=== PATIENT | female | born 1940 | race Caucasian/White ===

== ENCOUNTER 2019-08-13 11:01 | Outpatient (CLI) | payer OTHER ==
[~2019-08-13 11:01] MED LIST: CARVEDILOL25 MG; COZAAR100 MG; HUMALOG100 U/M1 SQ; HUMULIN N100 U/ML SQ; L-METHYL-MC TA1 EACH; LASIX40 MG PO; LIPITOR40 MG; SYNTHROID50 MCG; TRAMADOL HCL-AP1 TAB PO
== END 2019-08-13 11:45 | disposition home or self-care (01) ==
LOC: WOUND CARE 11:01 → WOUND MED 11:01 → WOUND CARE 11:45
DX: L30.8 Other specified dermatitis (principal); R60.0 Localized edema; L30.3 Infective dermatitis
CPT/HCPCS: G0463; A4554; A4930; A6216

== ENCOUNTER 2019-09-19 09:42 | Outpatient (CLI) | payer OTHER | END 2019-09-19 10:22 | disposition home or self-care (01) | LOC: WOUND MED 09:42 | DX: E11.622 Type 2 diabetes mellitus with other skin ulcer (principal); L97.821 Non-pressure chronic ulcer of other part of left lower leg limited to breakdown of skin; L03.116 Cellulitis of left lower limb | CPT/HCPCS: A4554; A4930; A6196; A6216; A6266; G0463 ==

== ENCOUNTER 2019-09-24 10:16 | Outpatient (CLI) | payer OTHER | END 2019-09-24 12:00 | disposition home or self-care (01) | LOC: WOUND MED 10:16 | DX: E11.622 Type 2 diabetes mellitus with other skin ulcer (principal); L97.821 Non-pressure chronic ulcer of other part of left lower leg limited to breakdown of skin | CPT/HCPCS: G0463; A4554; A4930; A6196; A6216; A6219; A6266 ==

== ENCOUNTER 2019-10-01 10:58 | Outpatient (CLI) | payer OTHER | END 2019-10-01 12:00 | disposition home or self-care (01) | LOC: WOUND MED 10:58 | DX: E11.622 Type 2 diabetes mellitus with other skin ulcer (principal); L97.821 Non-pressure chronic ulcer of other part of left lower leg limited to breakdown of skin | CPT/HCPCS: G0463; A4554; A4930; A6216 ==

== ENCOUNTER → 2020-03-12 | Outpatient (CLI) | payer OTHER | END | disposition home or self-care (01) | LOC: RAD 15:57 | PROVIDERS: ATTEND Ophthalmology | DX: I51.7 Cardiomegaly (principal) ==

== ENCOUNTER 2020-03-24 10:25 | Outpatient (CLI) | payer OTHER | END 2020-03-24 11:20 | disposition home or self-care (01) | LOC: WOUND MED 10:25 | PROVIDERS: ATTEND Surgery | DX: L97.821 Non-pressure chronic ulcer of other part of left lower leg limited to breakdown of skin (principal) | CPT/HCPCS: 97597; G0463; A4554; A4930; A6216; A6219 ==

== ENCOUNTER 2020-03-31 10:36 | Outpatient (CLI) | payer OTHER | END 2020-03-31 11:35 | disposition home or self-care (01) | LOC: WOUND MED 10:36 | PROVIDERS: ATTEND Surgery | DX: L97.821 Non-pressure chronic ulcer of other part of left lower leg limited to breakdown of skin (principal) | CPT/HCPCS: A4554; A4930; A6021; A6216; A6266; G0463 ==

== ENCOUNTER 2020-04-07 08:06 | Outpatient (CLI) | payer OTHER | END 2020-04-07 09:00 | disposition home or self-care (01) | LOC: WOUND MED 08:06 | PROVIDERS: ATTEND Surgery | DX: L97.821 Non-pressure chronic ulcer of other part of left lower leg limited to breakdown of skin (principal) | CPT/HCPCS: G0463; A4554; A4930; A6216 ==

== ENCOUNTER 2020-06-08 10:14 | Outpatient (CLI) | payer OTHER | END 2020-06-08 10:15 | disposition home or self-care (01) | LOC: LAB 10:14 | PROVIDERS: ATTEND Specialist | DX: I50.89 Other heart failure (principal) ==

== ENCOUNTER 2020-06-08 10:38 | Outpatient (CLI) | payer OTHER | END 2020-06-08 10:44 | disposition home or self-care (01) | LOC: RAD 10:38 | PROVIDERS: ATTEND Specialist | DX: I70.0 Atherosclerosis of aorta (principal); I50.20 Unspecified systolic (congestive) heart failure ==

== ENCOUNTER 2021-02-18 09:42 | Outpatient (CLI) | payer OTHER | END 2021-02-18 17:33 | disposition home or self-care (01) | LOC: LAB 09:42 | PROVIDERS: ATTEND Internal Medicine Endocrinology, Diabetes & Metabolism | DX: I11.0 Hypertensive heart disease with heart failure (principal); E83.41 Hypermagnesemia; E22.2 Syndrome of inappropriate secretion of antidiuretic hormone; E83.52 Hypercalcemia; E04.8 Other specified nontoxic goiter; E10.10 Type 1 diabetes mellitus with ketoacidosis without coma; E78.2 Mixed hyperlipidemia ==

== ENCOUNTER 2021-04-13 09:00 | Outpatient (CLI) | payer OTHER | END 2021-04-13 10:11 | disposition home or self-care (01) | LOC: WOUND MED 09:00 | PROVIDERS: ATTEND Surgery | DX: L98.491 Non-pressure chronic ulcer of skin of other sites limited to breakdown of skin (principal); R60.0 Localized edema | CPT/HCPCS: G0463; A4554; A4930; A6216; A6219 ==

== ENCOUNTER 2021-04-20 11:56 | Outpatient (CLI) | payer OTHER | END 2021-04-26 12:30 | disposition home or self-care (01) | LOC: WOUND MED 11:56 | PROVIDERS: ATTEND Surgery | DX: L98.491 Non-pressure chronic ulcer of skin of other sites limited to breakdown of skin (principal); R60.0 Localized edema | CPT/HCPCS: 16020; A4554; A4930; A6021; A6216; A6219 ==

== ENCOUNTER 2021-04-27 11:25 | Outpatient (CLI) | payer OTHER | END 2021-04-27 15:02 | disposition home or self-care (01) | LOC: WOUND MED 11:25 | PROVIDERS: ATTEND Surgery | DX: L98.491 Non-pressure chronic ulcer of skin of other sites limited to breakdown of skin (principal); R60.0 Localized edema | CPT/HCPCS: G0463; A4554; A4930; A6216 ==

== ENCOUNTER 2021-06-29 12:05 | Outpatient (CLI) | payer OTHER | END 2021-06-29 12:30 | disposition home or self-care (01) | LOC: WOUND MED 12:05 | PROVIDERS: ATTEND Surgery | DX: L98.491 Non-pressure chronic ulcer of skin of other sites limited to breakdown of skin (principal); R60.0 Localized edema | CPT/HCPCS: G0463; A4554; A4930; A6021; A6216; A6219 ==

== ENCOUNTER 2022-02-03 10:17 | Outpatient (CLI) | payer OTHER | END 2022-02-03 10:30 | disposition home or self-care (01) | LOC: WOUND MED 10:17 | PROVIDERS: ATTEND Specialist | DX: L98.492 Non-pressure chronic ulcer of skin of other sites with fat layer exposed (principal) | CPT/HCPCS: A4927; A6223; G0463 ==

== ENCOUNTER 2022-03-31 11:06 | Outpatient (CLI) | payer OTHER | END 2022-03-31 12:00 | disposition home or self-care (01) | LOC: WOUND MED 11:06 | PROVIDERS: ATTEND Specialist | DX: E11.622 Type 2 diabetes mellitus with other skin ulcer (principal); L98.492 Non-pressure chronic ulcer of skin of other sites with fat layer exposed; Z79.4 Long term (current) use of insulin | CPT/HCPCS: A4927; A6222; A6223; A6251; G0463 ==

== ENCOUNTER 2022-04-03 11:54 | Outpatient (CLI) | payer OTHER | END 2022-04-03 12:00 | disposition home or self-care (01) | LOC: WOUND MED 11:54 | PROVIDERS: ATTEND Specialist | DX: L98.492 Non-pressure chronic ulcer of skin of other sites with fat layer exposed (principal) | CPT/HCPCS: 97602; A4927; A6220; A6223; A6251 ==

== ENCOUNTER 2022-04-07 10:49 | Outpatient (CLI) | payer OTHER | END 2022-04-07 11:00 | disposition home or self-care (01) | LOC: WOUND MED 10:49 | PROVIDERS: ATTEND Specialist | DX: L98.492 Non-pressure chronic ulcer of skin of other sites with fat layer exposed (principal) | CPT/HCPCS: 11042; A4927; A6219; A6223; A6251 ==

== ENCOUNTER 2023-08-22 12:05 | Outpatient (CLI) | payer OTHER | END 2023-08-22 12:12 | disposition home or self-care (01) | LOC: RAD 12:05 | PROVIDERS: ATTEND Surgery | DX: R05.8 Other specified cough (principal) ==

== ENCOUNTER 2024-01-02 12:50 | Outpatient (CLI) | payer OTHER | END 2024-01-02 13:09 | disposition home or self-care (01) | LOC: RAD 12:50 | PROVIDERS: ATTEND Surgery | DX: G89.29 Other chronic pain (principal) ==